=== PATIENT | female | born 1985 | race Caucasian/White ===

== ENCOUNTER 2017-04-19 17:22 | Emergency (ER) | payer MEDICAID ==
[~2017-04-19] VITALS: Ht 175.3 cm; Wt 65.8 kg
[~2017-04-19 17:22] MED LIST: ACET-3017 PO; ALPR-429 PO; AMIT-106 PO; ASCO-182 PO; ASPI81TA94 PO; AZIT-1 PO; AZIT-9 PO; CEF300 PO; CEFU500T50 PO; CHOL400C10 PO; CYAN100T25 PO; CYCL10TA29 PO; DICY20TA70 PO; DIPH-1 PO; DIPH-740 PO; DOCU240C67 PO; FERR325C2 PO; FERR325T24 PO; HYDR-389 PO; HYDR25CA83 PO; HYDR2TAB4 PO; IBUP-2704 PO; IBUP800T37 PO; MEDR150D IM; NARA2.5T2 PO; ONDA4TAB PO; OXYC-373 PO; OXYC-865 PO; PREN-127 PO; PROM-110 PO; PROM25SU8 PR; PROM50TA23 PO; PROP20TA56 PO; RANI-320 PO; RANI-324 PO; SCOT TD; SERT25TA90 PO; SUMA100T32 PO; SUMA6CAR SQ; [UNRECOGNIZED DRUG - CODE]; [UNRECOGNIZED DRUG - CODE] SUBQ
--- NOTE | 2017-04-19 17:25 | ER Report ---
History and Physical Time Seen By MD: 17:24 (CLARK BAZAN MD) HPI/ROS CC: MS exacerbation HPI: 32-year-old female with past medical history of multiple sclerosis, vitamin D deficiency, bronchitis, patient presents to the emergency department with a two- week history of increasing weakness with blurred vision and also feeling of dizziness with a swimming sensation. She has a mild headache but denies it being a migraine. She is requesting that an MRI be done. Usually she receives thousand milligrams of methylprednisone and Phenergan for nausea. She then has a four-day course of methylprednisone. She is a patient of Dr. Beach, neurologist in [place]. They have discussed long-term steroids but they declined at that time hoping that she would improve. She has slowly deteriorated over the last couple of months. Her pain scale is 4 out of 10. She denies any vomiting, chest pain chest pressure, shortness of breath, palpitations, head trauma. ROS: 12 point review of systems essentially negative other than what's mentioned in history of present illness. NURSES AND OLD MEDICAL RECORDS: Reviewed PMH: Reviewed SURGICAL HX: Reviewed FAMILY HX: Noncontributory SOCIAL HX: She lives at home she denies smoking alcohol or illicit drugs. VITAL SIGNS: Reviewed CONSTITUTIONAL: 32-year-old female in moderate distress. PHYSICAL EXAM: HEENT: Pupils equal round reactive to light and accommodate, EOMI, tympanic membranes pearly white umbo present with good light reflex. Lips dry mucous membranes moist gums nonbleeding uvula midline and rises equally with phonation, oropharynx noninjected, teeth intact. NECK: Neck supple, thyroid not appreciated, anterior and posterior cervical lymphadenopathy not appreciated. Trachea midline and rises equally with phonation. CARDIAC: S1-S2 regular rate rhythm no murmurs rubs or gallops. LUNGS: Lungs clear bilaterally posteriorly in all bolden. Good air movement. ABDOMEN: Abdomen soft, nondistended, bowel sounds active in all 4 quadrants, no bruits noted, no CVA tenderness. MUSCULOSKELETAL: Strength 5 out of 5 x 4 extremities, no deformities noted. NEUROLOGIC: Patient alert and oriented by 3 (CLARK BAZAN MD) Allergies: Coded Allergies: glatiramer (copolymer 1) (Verified Allergy, Severe, hives, throat swelling , sweating, flushing, 10/15/16) Home Meds Active Scripts Oxycodone Hcl/Acetaminophen (PERCOCET 5-325 MG TABLET) 1 Each Tablet, 1 TAB PO QID Y for PAIN, #30 TAB 0 Refills Prov:KAYLIE JAMES MD 03/25/17 Diphenoxylate Hcl/Atropine (LOMOTIL TABLET) 1 Each Tablet, 1-2 TAB PO BID Y for DIARRHEA, #60 TAB 3 Refills Take 1 or 2 tablets up to twice each day depending on severity of diarrhea Prov:KAYLIE JAMES MD 03/11/17 Ranitidine Hcl (RANITIDINE HCL) 300 Mg Tablet, 1 TAB PO QDAY Y for DYSPEPSIA, # 30 TAB 3 Refills Prov:KAYLIE JAMES MD 01/09/17 Dicyclomine Hcl (DICYCLOMINE HCL) 20 Mg Tablet, 1 TAB PO QID, #120 TAB 6 Refills Prov:KAYLIE JAEMS MD 01/09/17 Sumatriptan Succinate (IMITREX) 100 Mg Tablet, 100 MG PO ONCE for headache, #9 Prov:JOSH ACOSTA DO 01/25/16 Reported Medications Gabapentin (GABAPENTIN) 300 Mg Capsule, 600 MG PO TID, CAPSULE 04/19/17 Scopolamine (TRANSDERM-SCOP) 1.5 Mg Patch, 1.5 MG TD PRN Y for NAUSEA, PATCH 10/15/16 Propranolol Hcl (PROPRANOLOL HCL) 20 Mg Tablet, 40 MG PO BID, TAB 10/15/16 Hx Smoking: Yes (1 ppweek for 12 years) Smoking Status: Light Tobacco Smoker Exposure to Second Hand Smoke?: Yes Hx Substance Use Disorder: No Hx Alcohol Use: No (CLARK BAZAN MD) Constitutional Vital Sign - Last 24 Hours 04/19/17 17:27 Temp 98.3 Pulse 89 Resp 18 B/P (MAP) 134/97 Pulse Ox 95 O2 Delivery Room Air (JONI ZAPATA MD) Medical Decision Making Data Points Result Diagram: 04/19/17181604/19/171816 Laboratory Hematology Test 04/19/17 18:17 04/19/17 18:34 Red Blood Count 4.54 M/uL (4.17-5.56) Mean Corpuscular Volume 88.1 fL (80.0-96.0) Mean Corpuscular Hemoglobin 30.0 pg (26.0-33.0) Mean Corpuscular Hemoglobin Concent 34.0 g/dL (32.0-36.0) Red Cell Distribution Width 14.7 % (11.5-14.5) Mean Platelet Volume 8.8 fL (7.2-11.1) Neutrophils (%) (Auto) 68.5 % (39.4-72.5) Lymphocytes (%) (Auto) 20.7 % (17.6-49.6) Monocytes (%) (Auto) 6.5 % (4.1-12.4) Eosinophils (%) (Auto) 3.6 % (0.4-6.7) Basophils (%) (Auto) 0.7 % (0.3-1.4) Nucleated RBC Relative Count (auto) 0.0 /100WBC Neutrophils # (Auto) 5.5 K/uL (2.0-7.4) Lymphocytes # (Auto) 1.7 K/uL (1.3-3.6) Monocytes # (Auto) 0.5 K/uL (0.3-1.0) Eosinophils # (Auto) 0.3 K/uL (0.0-0.5) Basophils # (Auto) 0.1 K/uL (0.0-0.1) Nucleated RBC Absolute Count (auto) 0.00 K/uL Sodium Level 140 mmol/L (137-145) Potassium Level 3.7 mmol/L (3.5-5.0) Chloride Level 103 mmol/L (98-107) Carbon Dioxide Level 23 mmol/L (22-31) Blood Urea Nitrogen 9 mg/dl (7-18) Creatinine 0.60 mg/dl (0.52-1.04) Glomerular Filtration Rate Calc > 60.0 Random Glucose 86 mg/dl (75-110) Calcium Level 9.0 mg/dl (8.4-10.2) Total Bilirubin 1.3 mg/dl (0.2-1.3) Aspartate Amino Transf (AST/SGOT) 15 U/L (0-35) Alanine Aminotransferase (ALT/SGPT) 20 U/L (0-56) Alkaline Phosphatase 62 U/L (0-126) Total Protein 7.4 gm/dl (6.3-8.2) Albumin 4.4 g/dl (3.5-5.0) Urine Color Yellow Urine Clarity Slightly-cloudy Urine pH 5.0 pH (4.8-9.5) Urine Specific [place] 1.018 Urine Protein Negative mg/dL (NEGATIVE) Urine Glucose (UA) Negative mg/dL (NEGATIVE) Urine Ketones Negative mg/dL (NEGATIVE) Urine Blood Negative (NEGATIVE) Urine Nitrite Negative (NEGATIVE) Urine Bilirubin Negative (NEGATIVE) Urine Urobilinogen Negative mg/dL (0.2-1.9) Urine Leukocyte Esterase Negative (NEGATIVE) Urine RBC 1 /HPF (0-2/HPF) Urine WBC 1 /HPF (0-5/HPF) Urine Squamous Epithelial Cells Many /LPF (</=FEW) Urine Bacteria Negative /HPF (NONE-FEW) Urine Mucus Few /HPF (NONE-FEW) Urine HCG, Qualitative Negative (NEGATIVE) Chemistry Test 04/19/17 18:17 04/19/17 18:34 White Blood Count 8.1 k/uL (4.5-11.0) Red Blood Count 4.54 M/uL (4.17-5.56) Hemoglobin 13.6 g/dL (12.0-16.0) Hematocrit 40.0 % (34.0-47.0) Mean Corpuscular Volume 88.1 fL (80.0-96.0) Mean Corpuscular Hemoglobin 30.0 pg (26.0-33.0) Mean Corpuscular Hemoglobin Concent 34.0 g/dL (32.0-36.0) Red Cell Distribution Width 14.7 % (11.5-14.5) Platelet Count 227 K/uL (150-450) Mean Platelet Volume 8.8 fL (7.2-11.1) Neutrophils (%) (Auto) 68.5 % (39.4-72.5) Lymphocytes (%) (Auto) 20.7 % (17.6-49.6) Monocytes (%) (Auto) 6.5 % (4.1-12.4) Eosinophils (%) (Auto) 3.6 % (0.4-6.7) Basophils (%) (Auto) 0.7 % (0.3-1.4) Nucleated RBC Relative Count (auto) 0.0 /100WBC Neutrophils # (Auto) 5.5 K/uL (2.0-7.4) Lymphocytes # (Auto) 1.7 K/uL (1.3-3.6) Monocytes # (Auto) 0.5 K/uL (0.3-1.0) Eosinophils # (Auto) 0.3 K/uL (0.0-0.5) Basophils # (Auto) 0.1 K/uL (0.0-0.1) Nucleated RBC Absolute Count (auto) 0.00 K/uL Glomerular Filtration Rate Calc > 60.0 Calcium Level 9.0 mg/dl (8.4-10.2) Total Bilirubin 1.3 mg/dl (0.2-1.3) Aspartate Amino Transf (AST/SGOT) 15 U/L (0-35) Alanine Aminotransferase (ALT/SGPT) 20 U/L (0-56) Alkaline Phosphatase 62 U/L (0-126) Total Protein 7.4 gm/dl (6.3-8.2) Albumin 4.4 g/dl (3.5-5.0) Urine Color Yellow Urine Clarity Slightly-cloudy Urine pH 5.0 pH (4.8-9.5) Urine Specific [place] 1.018 Urine Protein Negative mg/dL (NEGATIVE) Urine Glucose (UA) Negative mg/dL (NEGATIVE) Urine Ketones Negative mg/dL (NEGATIVE) Urine Blood Negative (NEGATIVE) Urine Nitrite Negative (NEGATIVE) Urine Bilirubin Negative (NEGATIVE) Urine Urobilinogen Negative mg/dL (0.2-1.9) Urine Leukocyte Esterase Negative (NEGATIVE) Urine RBC 1 /HPF (0-2/HPF) Urine WBC 1 /HPF (0-5/HPF) Urine Squamous Epithelial Cells Many /LPF (</=FEW) Urine Bacteria Negative /HPF (NONE-FEW) Urine Mucus Few /HPF (NONE-FEW) Urine HCG, Qualitative Negative (NEGATIVE) Urinalysis Test 04/19/17 18:34 Urine Color Yellow Urine Clarity Slightly-cloudy Urine pH 5.0 pH (4.8-9.5) Urine Specific [place] 1.018 Urine Protein Negative mg/dL (NEGATIVE) Urine Glucose (UA) Negative mg/dL (NEGATIVE) Urine Ketones Negative mg/dL (NEGATIVE) Urine Blood Negative (NEGATIVE) Urine Nitrite Negative (NEGATIVE) Urine Bilirubin Negative (NEGATIVE) Urine Urobilinogen Negative mg/dL (0.2-1.9) Urine Leukocyte Esterase Negative (NEGATIVE) Urine RBC 1 /HPF (0-2/HPF) Urine WBC 1 /HPF (0-5/HPF) Urine Squamous Epithelial Cells Many /LPF (</=FEW) Urine Bacteria Negative /HPF (NONE-FEW) Urine Mucus Few /HPF (NONE-FEW) Urine HCG, Qualitative Negative (NEGATIVE) (JONI ZAPATA MD) EKG/Imaging Imaging MRI report reviewed and results were the discussed with the patient. (JONI ZAPATA MD) ED Course/Re-evaluation ED Course Labs are pending. I have not heard back from the neurologist in [place]. Methylprednisolone succinate 1 g has been ordered. Also Phenergan 25 mg IV piggyback for nausea. Turned Over Dr. Henderson report given 5-year-old female with MS exacerbation. (CLARK BAZAN MD) ED Course 04/19/2017 7:02:33 pm case discussed with Dr. Beach, neurologist in [place] who is in favor of obtaining MRI with and without contrast of the brain tonight this was discussed with the patient who is in agreement she is currently receiving OCREVUS infusions b-cell suppressant therapy and is due in May for this. Also patient is requesting medicine for her headache she says she misspoke earlier Toradol is a drug that can be helpful Buttram at all is the drug that does not work for her she is requesting a shot of Toradol tonight. Toradol 50 mg IV push 1 ordered. MRI brain with and without was ordered after discussion of risks and benefits with the patient. Steroid infusion has already started and will complete. Plan at this time as per discussion with Dr. Bazan his for discharge and outpatient infusion therapy for the next 4 days. Patient is in agreement with this plan. 04/19/2017 9:19:11 pm patient relates that she has headaches associated with slight medical infusions as requesting medicines for pain control as she is out of oxycodone I wrote her for Toradol 10 mg tabs as well as Percocet 05/325 for oral use. Decision to Disposition Date: Apr 19, 2017 Decision to Disposition Time: 21:05 (JONI ZAPATA MD) Depart Departure Latest Vital Signs Vital Signs Date Time Temp Pulse Resp B/P (MAP) Pulse Ox O2 Delivery O2 Flow Rate FiO2 04/19/17 17:27 98.3 89 18 134/97 95 Room Air (JONI ZAPATA MD) Impression: Primary Impression: Multiple sclerosis Condition: Improved Disposition: HOME OR SELF-CARE Referrals: AMI BROWNLEE DO (PCP) Patient Instructions: Multiple Sclerosis (GEN) Additional Instructions: Return to infusion center tomorrow as scheduled at 10am for solumedrol infusion. MD Consult Note: Dr. Beach (JONI ZAPATA MD) CLARK BAZAN MD Apr 19, 2017 17:25 JONI ZAPATA MD Apr 19, 2017 19:04
[2017-04-19] MEDS ORDERED: methylPREDNIS SUC* 1000 MG/8ML 1,000 MG in NS(*) 0.9% 250 ML BAG 250 ML IV ONE (17:45)
[2017-04-19] MEDS ORDERED: PROMETHAZINE 25 MG/ML 1 ML AMP IVP ONE (17:45)
[2017-04-19 18:24] LABS: PLATELET COUNT, AUTOMATED 227 K/uL (150-450)
[2017-04-19] MEDS ORDERED: GABA-549 PO (18:35)
[2017-04-19] MEDS ORDERED: KETOROLAC 30 MG/ML VIAL IVP ONE (19:05)
[2017-04-19] MEDS ORDERED: KETOROLAC 15 MG/ML VIAL ONE (19:12)
[2017-04-19] MEDS ORDERED: GADOBENATE 529MG/1ML 15ML VIAL IVP ONE (20:00)
--- NOTE | 2017-04-19 21:01 | RADIOLOGY IMAGING REPORT ---
FACILITY: [facility] PATIENT NAME: Kaley Galindo : 1985 MR: [id number] V: [id number] EXAM DATE: ORDERING PHYSICIAN: JONI ZAPATA TECHNOLOGIST: Location: [facility] Patient: Kaley Galindo : 1985 Visit/Account:[id number] Date of Sevice: 04/19/2017 EXAMINATION: MRI Brain without IV contrast MRI Brain with IV contrast HISTORY: Multiple sclerosis. COMPARISON: 08/09/2016. TECHNIQUE: Multi-planar, multi-sequence brain MRI was performed before and after IV gadolinium. CONTRAST: 14 mL of IV MultiHance FINDINGS: Brain volume: Normal. Sagittal midline structures: Negative. Ventricles: Negative. Acute ischemic changes: None. Hemorrhage: None. Masses / edema: None. Enhancement: Normal. Garcia-white: Negative. White matter: Moderate patchy periventricular and subcortical T2/FLAIR hyperintensity. There are 4 n ew plaques in the left temporal lobe (series 4, image 18), left occipitotemporal subcortical white ma tter (series 4, image 25), right parietal white matter (series 4, image 34), and right posterior fron keri white matter (series 4, image 38). No restricted diffusion or enhancement. Vessels: Negative. Extra-axial: None. Calvarium / scalp: Negative. Skull base: Negative. Visualized sinuses / orbits: Rightward nasal septal deviation. Otherwise negative. Visualized upper neck: Negative. IMPRESSION: There are 4 new demyelinating plaques in the left temporal lobe, left occipitotemporal re gion, right parietal lobe, and right frontal lobe compared with 08/09/2016. No enhancement or restrict ed diffusion in these locations. Otherwise no significant interval change. Results were called to Rommel Bell at 04/19/2017 8:58 PM. Report Dictated By: Rian Matamoros MD at 04/19/2017 8:43 PM Report E-Signed By: Rian Matamoros MD at 04/19/2017 8:58 PM WSN:[id number]
[2017-04-19 21:21] VITALS: BP 110/72
[2017-04-24] MEDS ORDERED: OXYC-865 PO (17:00)
== END 2017-04-19 21:30 | disposition home or self-care (01) ==
LOC: ER 17:31
DX: G35 Multiple sclerosis (principal)
CPT/HCPCS: 70553; 81001; 81025; 85025; 99284; A9577; J1885; J2550; J2930; J7050; 82040; 82247; 82310; 82374; 82435; 82565; 82947; 84075; 84132; 84155; 84295; 84450; 84460; 84520

== ENCOUNTER → 2017-04-20 | Outpatient (CLI) | payer MEDICAID ==
[~2017-04-20] MED LIST changes: +GABA-549 PO
== END ==
LOC: LAB 09:45
PROVIDERS: ATTEND Family Medicine
DX: B35.1 Tinea unguium (principal)
CPT/HCPCS: 36415; 82040; 82247; 82310; 82374; 82435; 82565; 82947; 84075; 84132; 84155; 84295; 84450; 84460; 84520

== ENCOUNTER 2017-05-31 08:00 | Outpatient (RCR) | payer MEDICAID ==
[2017-04-20 10:20] VITALS: BP 99/64
[2017-04-20] MEDS: PROMETHAZINE IVP PRN (10:36)
[2017-04-20] MEDS: NS 0.9% IVP PRN (10:36)
[2017-04-20] MEDS: methylPREDNIS SUC* 1000 MG/8ML 1,000 MG in NS(*) 0.9% 250 ML BAG 250 ML IV PRN (11:04)
[2017-04-21 09:38] VITALS: BP 118/70
[2017-04-21] MEDS: PROMETHAZINE IVP PRN (09:58)
[2017-04-21] MEDS: NS 0.9% IVP PRN (09:58)
[2017-04-21] MEDS: methylPREDNIS SUC* 1000 MG/8ML 1,000 MG in NS(*) 0.9% 250 ML BAG 250 ML IV PRN (10:24)
[2017-04-22] MEDS: NS 0.9% IVP PRN (10:06)
[2017-04-22] MEDS: PROMETHAZINE IVP PRN (10:06)
[2017-04-22 10:08] VITALS: BP 116/78
[2017-04-22] MEDS: methylPREDNIS SUC* 1000 MG/8ML 1,000 MG in NS(*) 0.9% 250 ML BAG 250 ML IV PRN (10:28)
[2017-04-23] MEDS: PROMETHAZINE IVP PRN (10:33)
[2017-04-23] MEDS: methylPREDNIS SUC* 1000 MG/8ML 1,000 MG in NS(*) 0.9% 250 ML BAG 250 ML IV PRN (10:33)
[2017-04-23] MEDS: NS 0.9% IVP PRN (10:33)
[2017-04-23 16:42] VITALS: BP 119/78
[~2017-05-31 08:00] MED LIST changes: +DEXTROSE 5%(*) 100 ML BAG 100 ML IVPB PRN; +LIDOCAINE/SOD BICARB 8.4% SYR ID PRN; +NS(*) 0.9% 100 ML BAG 100 ML IVPB PRN
[2017-05-31 08:20] VITALS: BP 93/73
[2017-05-31] MEDS ORDERED: ACETAMINOPHEN 325 MG TAB PO PRN (08:40)
[2017-05-31] MEDS ORDERED: diphenhydrAMINE 25 MG CAP PO PRN (08:40)
[2017-05-31 08:43] LABS: PLATELET COUNT, AUTOMATED 183 K/uL (150-450)
[2017-05-31] MEDS: methylPREDNIS SUCC 125 MG/2ML IVP PRN ×2 (08:46→08:54)
[2017-05-31] MEDS ORDERED: OCRELIZUMAB 300 MG/10 ML SDV 600 MG in NS(*) 0.9% 500 ML BAG 500 ML IVPB ONE (09:00)
== END 2017-06-12 10:30 | disposition home or self-care (01) ==
LOC: SPU 08:00
PROVIDERS: ATTEND Emergency Medicine
DX: G35 Multiple sclerosis (principal)
CPT/HCPCS: 36415; 85025; 96365; 96366; 96375; J2350; J2550; J2930; J7040; J7050; Q0163; 82040; 82247; 82310; 82374; 82435; 82565; 82947; 84075; 84132; 84155; 84295; 84450; 84460; 84520

== ENCOUNTER 2017-11-22 07:54 | Outpatient (RCR) | payer MEDICAID ==
[~2017-11-22 07:54] MED LIST changes: -RANI-324 PO; +RANI-366 PO
[2017-11-22] MEDS ORDERED: OCRELIZUMAB 300 MG/10 ML SDV 300 MG in NS(*) 0.9% 250 ML BAG 250 ML IVPB ONE (08:25)
[2017-11-22] MEDS ORDERED: diphenhydrAMINE 25 MG CAP PO PRN (08:30)
[2017-11-22] MEDS ORDERED: methylPREDNIS SUCC 125 MG/2ML IVP PRN (08:30)
[2017-11-22] MEDS ORDERED: ACETAMINOPHEN 325 MG TAB PO PRN (08:30)
[2017-11-22 08:34] VITALS: BP 113/79
[2017-11-22 08:34] LABS: PLATELET COUNT, AUTOMATED 229 K/uL (150-450)
[2017-11-22] MEDS ORDERED: NS 0.9% IVPB ONE (09:00)
[2017-11-22] MEDS ORDERED: OCRELIZUMAB IVPB ONE (09:00)
[2017-11-22] MEDS ORDERED: OCRELIZUMAB 300 MG/10 ML SDV 600 MG in NS(*) 0.9% 500 ML BAG 500 ML IVPB ONE (09:10)
[2017-11-22 14:05] VITALS: BP 101/70
[2017-11-22] MEDS ORDERED: DICY20TA70 PO (19:06)
[2017-12-03] MEDS ORDERED: KET10 PO (19:42)
[2017-12-03] MEDS ORDERED: OXYC-865 PO (19:42)
[2017-12-03] MEDS ORDERED: HYDR-4228 PO (19:42)
[2017-12-20] MEDS ORDERED: OXYC-865 PO (12:02)
[2017-12-24] MEDS ORDERED: DIPH-1 PO (11:09)
== END 2017-12-20 08:29 | disposition home or self-care (01) ==
LOC: SPU 07:54
PROVIDERS: ATTEND Emergency Medicine
DX: G35 Multiple sclerosis (principal)
CPT/HCPCS: 85025; 96375; 96413; 96415; J2350; J2930; J7040; J7050; Q0163

== ENCOUNTER 2017-12-03 17:18 | Emergency (ER) | payer MEDICAID ==
[~2017-12-03 17:18] MED LIST changes: -DEXTROSE 5%(*) 100 ML BAG 100 ML IVPB PRN; -LIDOCAINE/SOD BICARB 8.4% SYR ID PRN; -NS(*) 0.9% 100 ML BAG 100 ML IVPB PRN
--- NOTE | 2017-12-03 17:39 | ER Report ---
History and Physical Time Seen By MD: 17:38 Hx. of Stated Complaint: "MS EXACERBATION". DIFFICULTY THINKING, HEADACHE, INCREASED PAIN. HPI/ROS CHIEF COMPLAINT: MS exacerbation, headache HISTORY OF PRESENT ILLNESS: 32-year-old female patient presents to emergency room with complaint of an MS exacerbation. Patient states that she has been having problems for approximately 10 days. She states that she is having numbness, tingling in her hands, weakness throughout. She states she's also been having a headache. She states that she has been having a difficult time finding words and speaking. She states that she also has difficult time concentrating. Patient states that she did contact her neurologist today, and was able to get hold of her. She did come in for steroid treatment. Patient denies any fevers, chills, nausea, vomiting or diarrhea. REVIEW OF SYSTEMS: Respiratory: No cough, no dyspnea. Cardiovascular: No chest pain, no palpitations. Gastrointestinal: No vomiting, no abdominal pain. Musculoskeletal: As noted above Allergies: Coded Allergies: glatiramer (copolymer 1) (Verified Allergy, Severe, hives, throat swelling , sweating, flushing, 12/03/17) Home Meds Active Scripts Ketorolac Tromethamine (KETOROLAC TROMETHAMINE) 10 Mg Tab, 10 MG PO Q6H, #20 TAB Prov:MARCIO ISAAC 12/03/17 Hydroxyzine Hcl (HYDROXYZINE HCL) 50 Mg Tablet, 50 MG PO QHS Y for INSOMNIA, # 15 TAB Prov:MARCIO ISAAC 12/03/17 Oxycodone Hcl/Acetaminophen (PERCOCET 5-325 MG TABLET) 1 Each Tablet, 1 EACH PO Q4-6H Y for PAIN, #12 TAB Prov:MARCIO ISAAC 12/03/17 Dicyclomine Hcl (DICYCLOMINE HCL) 20 Mg Tablet, 1 TAB PO QID, #120 TAB 6 Refills Prov:KAYLIE JAMES MD 11/22/17 Diphenoxylate Hcl/Atropine (LOMOTIL TABLET) 1 Each Tablet, 1-2 TAB PO BID Y for DIARRHEA, #60 TAB 3 Refills Take 1 or 2 tablets up to twice each day depending on severity of diarrhea Prov:KAYLIE JAMES MD 08/12/17 Ranitidine Hcl (RANITIDINE HCL) 300 Mg Tablet, 1 TAB PO QDAY Y for DYSPEPSIA, # 60 TAB 6 Refills Prov:KAYLIE JAMES MD 05/06/17 Sumatriptan Succinate (IMITREX) 100 Mg Tablet, 100 MG PO ONCE for headache, #9 Prov:KARLAJOSH DO 01/25/16 Reported Medications Gabapentin (GABAPENTIN) 300 Mg Capsule, 600 MG PO TID, CAPSULE 04/19/17 Scopolamine (TRANSDERM-SCOP) 1.5 Mg Patch, 1.5 MG TD PRN Y for NAUSEA, PATCH 10/15/16 Propranolol Hcl (PROPRANOLOL HCL) 20 Mg Tablet, 40 MG PO BID, TAB 10/15/16 Discontinued Scripts Oxycodone Hcl/Acetaminophen (PERCOCET 5-325 MG TABLET) 1 Each Tablet, 1 TAB PO QID Y for PAIN, #30 TAB 0 Refills Prov:KAYLIE JAMES MD 11/19/17 Past Medical/Surgical History Patient has a past medical history of MS, trigeminal neuralgia, migraines, heart murmur, frequent UTI, upper back pain, tinnitus, anxiety. Patient has a surgical history of appendectomy, tubal ligation, left foot surgery, tooth extraction. Patient has a family medical history of cancer. Reviewed Nurses Notes: Yes Hx Smoking: Yes (1 ppweek for 12 years) Smoking Status: Light Tobacco Smoker Exposure to Second Hand Smoke?: Yes Hx Substance Use Disorder: No Hx Alcohol Use: No Constitutional Vital Sign - Last 24 Hours 12/03/17 12/03/17 12/03/17 12/03/17 17:22 17:30 17:59 18:00 Temp 98.3 Pulse 67 73 73 Resp 18 B/P (MAP) 123/85 103/65 (78) 106/79 (88) Pulse Ox 98 81 96 O2 Delivery Room Air 12/03/17 12/03/17 12/03/17 12/03/17 18:05 18:20 18:30 18:35 Pulse 63 70 75 B/P (MAP) 89/55 (66) Pulse Ox 97 95 100 12/03/17 12/03/17 12/03/17 18:50 19:00 19:30 Pulse ??? B/P (MAP) 121/76 (91) 107/74 (85) Pulse Ox 84 Intake and Output 12/03/17 12/03/17 12/04/17 15:00 23:00 07:00 Intake Total 258 ml Balance 258 ml Physical Exam General Appearance: The patient is alert, has no immediate need for airway protection and no current signs of toxicity. ENT: Tympanic membranes are pearly-edwards, auditory canals are patent. Respiratory: Chest is non tender, lungs are clear to auscultation. Cardiac: regular rate and rhythm Gastrointestinal: Abdomen is soft and non tender, no masses, bowel sounds normal. Musculoskeletal: Neck: Neck is supple and non tender. Extremities have full range of motion and are non tender. Skin: No rashes or lesions. Neuro: Patient is alert and oriented 4, cranial nerves II through XII grossly intact. DIFFERENTIAL DIAGNOSIS: After history and physical exam differential diagnosis was considered for headache including but not limited to subarachnoid hemorrhage , migraine headache, tension headache and infectious causes such as meningitis, pharyngitis and sinusitis. Included in the differential is MS exacerbation. Medical Decision Making Data Points Result Diagram: 12/03/17 18012/03/17 180 Laboratory Hematology Test 12/03/17 17:56 12/03/17 18:07 Urine Color Yellow Urine Clarity Clear Urine pH 6.0 pH (4.8-9.5) Urine Specific [place] 1.010 Urine Protein Negative mg/dL (NEGATIVE) Urine Glucose (UA) Negative mg/dL (NEGATIVE) Urine Ketones Negative mg/dL (NEGATIVE) Urine Blood Negative (NEGATIVE) Urine Nitrite Negative (NEGATIVE) Urine Bilirubin Negative (NEGATIVE) Urine Urobilinogen Negative mg/dL (0.2-1.9) Urine Leukocyte Esterase Negative (NEGATIVE) Urine RBC 1 /HPF (0-2/HPF) Urine WBC 1 /HPF (0-5/HPF) Urine Squamous Epithelial Cells Many /LPF (</=FEW) Urine Bacteria Negative /HPF (NONE-FEW) Urine Mucus None /HPF (NONE-FEW) Red Blood Count 4.85 M/uL (4.17-5.56) Mean Corpuscular Volume 90.3 fL (80.0-96.0) Mean Corpuscular Hemoglobin 31.7 pg (26.0-33.0) Mean Corpuscular Hemoglobin Concent 35.1 g/dL (32.0-36.0) Red Cell Distribution Width 14.5 % (11.5-14.5) Mean Platelet Volume 8.2 fL (7.2-11.1) Neutrophils (%) (Auto) 69.4 % (39.4-72.5) Lymphocytes (%) (Auto) 21.2 % (17.6-49.6) Monocytes (%) (Auto) 6.1 % (4.1-12.4) Eosinophils (%) (Auto) 2.9 % (0.4-6.7) Basophils (%) (Auto) 0.4 % (0.3-1.4) Nucleated RBC Relative Count (auto) 0.0 /100WBC Neutrophils # (Auto) 6.8 K/uL (2.0-7.4) Lymphocytes # (Auto) 2.1 K/uL (1.3-3.6) Monocytes # (Auto) 0.6 K/uL (0.3-1.0) Eosinophils # (Auto) 0.3 K/uL (0.0-0.5) Basophils # (Auto) 0.0 K/uL (0.0-0.1) Nucleated RBC Absolute Count (auto) 0.00 K/uL Sodium Level 140 mmol/L (137-145) Potassium Level 3.7 mmol/L (3.5-5.0) Chloride Level 102 mmol/L (98-107) Carbon Dioxide Level 25 mmol/L (22-31) Blood Urea Nitrogen 12 mg/dl (7-18) Creatinine 0.70 mg/dl (0.52-1.04) Glomerular Filtration Rate Calc > 60.0 Random Glucose 91 mg/dl (75-110) Calcium Level 9.3 mg/dl (8.4-10.2) Total Bilirubin 0.7 mg/dl (0.2-1.3) Aspartate Amino Transf (AST/SGOT) 16 U/L (0-35) Alanine Aminotransferase (ALT/SGPT) 20 U/L (0-56) Alkaline Phosphatase 56 U/L (0-126) Total Protein 7.5 g/dl (6.3-8.2) Albumin 4.8 g/dl (3.5-5.0) Chemistry Test 12/03/17 17:56 12/03/17 18:07 Urine Color Yellow Urine Clarity Clear Urine pH 6.0 pH (4.8-9.5) Urine Specific [place] 1.010 Urine Protein Negative mg/dL (NEGATIVE) Urine Glucose (UA) Negative mg/dL (NEGATIVE) Urine Ketones Negative mg/dL (NEGATIVE) Urine Blood Negative (NEGATIVE) Urine Nitrite Negative (NEGATIVE) Urine Bilirubin Negative (NEGATIVE) Urine Urobilinogen Negative mg/dL (0.2-1.9) Urine Leukocyte Esterase Negative (NEGATIVE) Urine RBC 1 /HPF (0-2/HPF) Urine WBC 1 /HPF (0-5/HPF) Urine Squamous Epithelial Cells Many /LPF (</=FEW) Urine Bacteria Negative /HPF (NONE-FEW) Urine Mucus None /HPF (NONE-FEW) White Blood Count 9.9 k/uL (4.5-11.0) Red Blood Count 4.85 M/uL (4.17-5.56) Hemoglobin 15.4 g/dL (12.0-16.0) Hematocrit 43.8 % (34.0-47.0) Mean Corpuscular Volume 90.3 fL (80.0-96.0) Mean Corpuscular Hemoglobin 31.7 pg (26.0-33.0) Mean Corpuscular Hemoglobin Concent 35.1 g/dL (32.0-36.0) Red Cell Distribution Width 14.5 % (11.5-14.5) Platelet Count 273 K/uL (150-450) Mean Platelet Volume 8.2 fL (7.2-11.1) Neutrophils (%) (Auto) 69.4 % (39.4-72.5) Lymphocytes (%) (Auto) 21.2 % (17.6-49.6) Monocytes (%) (Auto) 6.1 % (4.1-12.4) Eosinophils (%) (Auto) 2.9 % (0.4-6.7) Basophils (%) (Auto) 0.4 % (0.3-1.4) Nucleated RBC Relative Count (auto) 0.0 /100WBC Neutrophils # (Auto) 6.8 K/uL (2.0-7.4) Lymphocytes # (Auto) 2.1 K/uL (1.3-3.6) Monocytes # (Auto) 0.6 K/uL (0.3-1.0) Eosinophils # (Auto) 0.3 K/uL (0.0-0.5) Basophils # (Auto) 0.0 K/uL (0.0-0.1) Nucleated RBC Absolute Count (auto) 0.00 K/uL Glomerular Filtration Rate Calc > 60.0 Calcium Level 9.3 mg/dl (8.4-10.2) Total Bilirubin 0.7 mg/dl (0.2-1.3) Aspartate Amino Transf (AST/SGOT) 16 U/L (0-35) Alanine Aminotransferase (ALT/SGPT) 20 U/L (0-56) Alkaline Phosphatase 56 U/L (0-126) Total Protein 7.5 g/dl (6.3-8.2) Albumin 4.8 g/dl (3.5-5.0) Urinalysis Test 12/03/17 17:56 Urine Color Yellow Urine Clarity Clear Urine pH 6.0 pH (4.8-9.5) Urine Specific [place] 1.010 Urine Protein Negative mg/dL (NEGATIVE) Urine Glucose (UA) Negative mg/dL (NEGATIVE) Urine Ketones Negative mg/dL (NEGATIVE) Urine Blood Negative (NEGATIVE) Urine Nitrite Negative (NEGATIVE) Urine Bilirubin Negative (NEGATIVE) Urine Urobilinogen Negative mg/dL (0.2-1.9) Urine Leukocyte Esterase Negative (NEGATIVE) Urine RBC 1 /HPF (0-2/HPF) Urine WBC 1 /HPF (0-5/HPF) Urine Squamous Epithelial Cells Many /LPF (</=FEW) Urine Bacteria Negative /HPF (NONE-FEW) Urine Mucus None /HPF (NONE-FEW) EKG/Imaging EKG Interpretation 12 lead EKG: Rhythm: normal sinus rhythm with sinus arrhythmia, ventricular rate of 64 bpm [place]: normal QRS: normal ST segments: normal Imaging 2 VIEWS CHEST INDICATION: Chest tightness. COMPARISON: 01/13/2015. 02/02/2016. FINDINGS: Cardiomediastinal silhouette and pulmonary vessels within normal limits. There is no focal infiltrate or lobar consolidation. There is no pneumothorax or pleural effusion. No discrete nodules are seen on this exam. Upper abdomen is unremarkable. No acute bony abnormality. IMPRESSION: 1. No acute cardiopulmonary process. Report Dictated By: Sonu Gleason at 12/03/2017 7:17 PM Report E-Signed By: Soun Gleason at 12/03/2017 7:19 PM ED Course/Re-evaluation ED Course Patient is admitted and examined, history and physical were obtained. Different diagnoses were considered. On examination lungs clear, heart is regular, patient was alert and oriented 4, cranial nerves II through XII grossly intact. An IV was started, CBC, CMP, urinalysis were obtained. Lab results were unremarkable. I did call and discuss the case with neurology had [facility] [place]. Endocrine through the case, although my plans to treat with 1 g of methylprednisolone and then have her get 4 more days. I did ask if he felt that she needed any imaging. He states that taking sure that this was not a pseudo-exacerbation and then treating appropriately would be appropriate and he would not feel that was necessary to do any imaging. I discussed the patient who verbalized agreement. As we are giving her her infusion of the methylprednisolone patient states she was feeling some chest tightness. We did get an EKG and a chest x-ray which were negative. We will go ahead and discharge patient home this time. We will have her continue Toradol, which he taken for headache, as well as some Percocet to help with pain. She is to follow -up with her primary care provider in the next week. I will like him follow-up neurology in the next 1-2 weeks. Patient verbalized understanding and agreement with plan. Decision to Disposition Date: Dec 03, 2017 Decision to Disposition Time: 19:45 Depart Departure Latest Vital Signs Vital Signs Date Time Temp Pulse Resp B/P (MAP) Pulse Ox O2 Delivery O2 Flow Rate FiO2 12/03/17 19:30 107/74 (85) 12/03/17 18:50 ??? 84 12/03/17 17:22 98.3 18 Room Air Impression: Primary Impression: Exacerbation of multiple sclerosis Additional Impression: Migraine headache Condition: Improved Disposition: HOME OR SELF-CARE Referrals: AMI BROWNLEE DO (PCP) New Scripts Ketorolac Tromethamine (KETOROLAC TROMETHAMINE) 10 Mg Tab 10 MG PO Q6H, #20 TAB Prov: MARCIO ISAAC 12/03/17 Hydroxyzine Hcl (HYDROXYZINE HCL) 50 Mg Tablet 50 MG PO QHS Y for INSOMNIA, #15 TAB Prov: MARCIO ISAAC 12/03/17 Oxycodone Hcl/Acetaminophen (PERCOCET 5-325 MG TABLET) 1 Each Tablet 1 EACH PO Q4-6H Y for PAIN, #12 TAB Prov: MARCIO ISAAC 12/03/17 Patient Instructions: Multiple Sclerosis (DC) Additional Instructions: Follow up with special procedure unit to get infusion for the next 4 days. Increase fluid intake. Get plenty of rest. Follow up with your primary care provider in the next week. Return to the ER if condition worsens. Take medication as prescribed. Problem Qualifiers Additional Impression: Migraine headache Migraine type: unspecified Status migrainosus presence: without status migrainosus Intractability: not intractable Qualified Codes: G43.909 - Migraine, unspecified, not intractable, without status migrainosus MARCIO ISAAC TRAVELING REPAIR ACCOUNTANT Dec 03, 2017 17:38
[2017-12-03] MEDS ORDERED: methylPREDNIS SUC* 1000 MG/8ML 1,000 MG in NS(*) 0.9% 250 ML BAG 250 ML IV ONE (17:55)
[2017-12-03 18:17] LABS: PLATELET COUNT, AUTOMATED 273 K/uL (150-450)
[2017-12-03] MEDS ORDERED: KETOROLAC 15 MG/ML VIAL IVP ONE (18:35)
[2017-12-03] MEDS ORDERED: ONDANSETRON 4 MG/2 ML VIAL IVP ONE (18:35)
--- NOTE | 2017-12-03 19:23 | RADIOLOGY IMAGING REPORT ---
FACILITY: [facility] - [place] PATIENT NAME: Kaley Galindo : 1985 MR: [id number] V: [id number] EXAM DATE: ORDERING PHYSICIAN: MARCIO ISAAC TECHNOLOGIST: Location: [facility] Patient: Kaley Galindo : 1985 Visit/Account:[id number] Date of Sevice: 12/03/2017 2 VIEWS CHEST INDICATION: Chest tightness. COMPARISON: 01/13/2015. 02/02/2016. FINDINGS: Cardiomediastinal silhouette and pulmonary vessels within normal limits. There is no focal infiltrate or lobar consolidation. There is no pneumothorax or pleural effusion. No discrete nodules are seen on this exam. Upper abdomen is unremarkable. No acute bony abnormality. IMPRESSION: 1. No acute cardiopulmonary process. Report Dictated By: Sonu Gleason at 12/03/2017 7:17 PM Report E-Signed By: Sonu Gleason at 12/03/2017 7:19 PM [id number]
[2017-12-03 19:30] VITALS: BP 107/74
[2017-12-03] MEDS ORDERED: OXYC-865 PO (19:42)
[2017-12-03] MEDS ORDERED: KET10 PO (19:42)
[2017-12-03] MEDS ORDERED: HYDR-4228 PO (19:42)
[2017-12-03] MEDS ORDERED: hydrOXYzine 25 MG TAB TH 2 TAB/BOTTLE PO ONE (20:10)
--- NOTE | 2017-12-04 06:32 | EKG ---
[place] [facility] [place] NAME: COLE LONG : [id number] MR: [id number] V: [id number] EXAM DATE: ORDERING PHYSICIAN: MARCIO ISAAC TECHNOLOGIST: Test Reason : CHEST TIGHTNESS Blood Pressure : / mmHG Vent. Rate : 064 BPM Atrial Rate : 064 BPM P-R Int : 146 ms QRS Dur : 072 ms QT Int : 432 ms P-R-T Axes : 059 076 061 degrees QTc Int : 445 ms Normal sinus rhythm with sinus arrhythmia Normal ECG When compared with ECG of 02-FEB-2016 09:07, Vent. rate has increased BY 22 BPM T wave inversion less evident in Anterior leads Confirmed by KAYLIE SALAMANCA ([id number]) on 12/04/2017 11:26:04 AM Referred By: Confirmed By:KAYLIE SALAMANCA
== END 2017-12-03 20:10 | disposition home or self-care (01) ==
LOC: ER 17:30
DX: G43.909 Migraine, unspecified, not intractable, without status migrainosus (principal); G35 Multiple sclerosis; R07.89 Other chest pain
CPT/HCPCS: 81001; 85025; 93005; 96365; 96375; 99284; J1885; J2405; J2930; J7050; 71046; 82040; 82247; 82310; 82374; 82435; 82565; 82947; 84075; 84132; 84155; 84295; 84450; 84460; 84520

== ENCOUNTER 2017-12-06 10:30 | Outpatient (RCR) | payer MEDICAID ==
[2017-12-04 10:10] VITALS: BP 109/73
[2017-12-04] MEDS: NS(*) 0.9% 100 ML BAG 100 ML IVPB PRN (10:55)
[2017-12-04] MEDS: methylPREDNIS SUC* 1000 MG/8ML 1,000 MG in NS(*) 0.9% 250 ML BAG 250 ML IV PRN (10:55)
[2017-12-04 12:03] VITALS: BP 100/55
[2017-12-05 11:55] VITALS: BP 100/57
[2017-12-05] MEDS: methylPREDNIS SUC* 1000 MG/8ML 1,000 MG in NS(*) 0.9% 250 ML BAG 250 ML IV PRN (12:26)
[2017-12-05 13:32] VITALS: BP 105/65
[~2017-12-06 10:30] MED LIST changes: +DEXTROSE 5%(*) 100 ML BAG 100 ML IVPB PRN; +HYDR-4228 PO; +KET10 PO; +LIDOCAINE/SOD BICARB 8.4% SYR ID PRN
[2017-12-06 11:02] VITALS: BP 95/60
[2017-12-06] MEDS: methylPREDNIS SUC* 1000 MG/8ML 1,000 MG in NS(*) 0.9% 250 ML BAG 250 ML IV PRN (11:27)
[2017-12-06] MEDS: NS(*) 0.9% 100 ML BAG 100 ML IVPB PRN (11:28)
[2017-12-06 12:54] VITALS: BP 95/57
[2017-12-07 08:59] VITALS: BP 108/75
[2017-12-07] MEDS: NS(*) 0.9% 100 ML BAG 100 ML IVPB PRN (09:01)
[2017-12-07] MEDS: methylPREDNIS SUC* 1000 MG/8ML 1,000 MG in NS(*) 0.9% 250 ML BAG 250 ML IV PRN (09:01)
[2017-12-07 10:13] VITALS: BP 99/58
[2017-12-20] MEDS ORDERED: OXYC-865 PO (12:02)
[2017-12-24] MEDS ORDERED: DIPH-1 PO (11:09)
== END 2017-12-20 08:33 | disposition home or self-care (01) ==
LOC: SPU 10:30
PROVIDERS: ATTEND Nurse Practitioner Family
DX: G35 Multiple sclerosis (principal)
CPT/HCPCS: 96365; J2930; J7050

== ENCOUNTER → 2018-01-07 | Outpatient (REF) | payer MEDICAID ==
[~2018-01-07] MED LIST changes: -DEXTROSE 5%(*) 100 ML BAG 100 ML IVPB PRN; -LIDOCAINE/SOD BICARB 8.4% SYR ID PRN
== END ==
LOC: ZZSENDIN 16:14
PROVIDERS: ATTEND Urology
DX: N39.0 Urinary tract infection, site not specified (principal); R31.0 Gross hematuria; B96.20 Unspecified Escherichia coli [E. coli] as the cause of diseases classified elsewhere
CPT/HCPCS: 87077; 87088; 87186

== ENCOUNTER → 2018-03-27 | Outpatient (REF) | payer MEDICAID | LOC: ZZSENDIN 10:00 | PROVIDERS: ATTEND Family Medicine | DX: I78.1 Nevus, non-neoplastic (principal) | CPT/HCPCS: 88305 ==

== ENCOUNTER → 2018-05-06 | Outpatient (CLI) | payer MEDICAID ==
[~2018-05-06] MED LIST changes: +GADOBENATE 529MG/1ML 15ML VIAL IVP ONE
--- NOTE | 2018-05-06 10:28 | RADIOLOGY IMAGING REPORT ---
FACILITY: [facility] [place] PATIENT NAME: Kaley Galindo : 1985 MR: [id number] V: [id number] EXAM DATE: ORDERING PHYSICIAN: MEKA MCMAHAN TECHNOLOGIST: Location: [facility] [place] Patient: Kaley Galindo : 1985 Visit/Account:[id number] Date of Sevice: 05/06/2018 MR BRAIN/BRAIN STEM W/ & W/O CON Comparisons: Brain MRI dated April 19, 2017 Additional pertinent history: Multiple sclerosis TECHNIQUE: Multiplanar, multisequence brain MRI was performed with and without gadolinium contrast. CONTRAST: 14 ml of MultiHance. FINDINGS: Sagittal midline structures and craniocervical junction: Negative. Midline shift: None. Ventricles: Negative. Brain parenchyma: Diffusion weighted imaging: Negative. Gradient sequence: Negative. T2 weighted FLAIR images: Continued multiple regions of increased T2 signal within the periventricu lar and subcortical white matter with several lesions perpendicular to the lateral ventricles compati ble with patient's history of multiple sclerosis. Also continued findings of a region of increased T 2 signal in the left middle cerebellar peduncle. No new foci when compared to previous exam. Extra-axial spaces: Negative. Dural venous sinuses and major arterial flow voids: Negative. Intracranial enhancement: Negative.. Mastoid air cells and paranasal sinuses: Mild mucosal thickening involving the ethmoid air cells and sphenoid sinuses. Surrounding soft tissues and orbits: Negative. Impression: 1. Stable changes of multiple sclerosis. 2. No new lesions or pathologic enhancement when compared to previous exam. 3. No other new findings from previous exam. Report Dictated By: Dung Hatch MD at 05/06/2018 10:14 AM Report E-Signed By: Dung Hatch MD at 05/06/2018 10:23 AM WSN:[id number]
== END ==
LOC: MRI 01:24
PROVIDERS: ATTEND Psychiatry & Neurology Neurology
DX: G35 Multiple sclerosis (principal)
CPT/HCPCS: 70553; A9577

== ENCOUNTER 2018-05-09 07:16 | Outpatient (RCR) | payer MEDICAID ==
[~2018-05-09 07:16] MED LIST changes: +DEXTROSE 5%(*) 100 ML BAG 100 ML IVPB PRN; -GADOBENATE 529MG/1ML 15ML VIAL IVP ONE; +LIDOCAINE/SOD BICARB 8.4% SYR ID PRN; +NS(*) 0.9% 100 ML BAG 100 ML IVPB PRN
[2018-05-09 08:15] VITALS: BP 116/78
[2018-05-09 08:41] LABS: PLATELET COUNT, AUTOMATED 238 K/uL (150-450)
[2018-05-09] MEDS ORDERED: ACETAMINOPHEN 325 MG TAB PO PRN (08:45)
[2018-05-09] MEDS ORDERED: OCRELIZUMAB 300 MG/10 ML SDV 600 MG in NS(*) 0.9% 500 ML BAG 500 ML IVPB ONE (08:45)
[2018-05-09] MEDS ORDERED: diphenhydrAMINE 25 MG CAP PO PRN (08:50)
[2018-05-09] MEDS ORDERED: methylPREDNIS SUCC 125 MG/2ML IVP PRN (08:50)
[2018-05-09 14:06] VITALS: BP 122/72
== END 2018-05-12 15:43 | disposition home or self-care (01) ==
LOC: SPU 07:16
PROVIDERS: ATTEND Emergency Medicine
DX: G35 Multiple sclerosis (principal)
CPT/HCPCS: 85025; J2350; J2930; J7040; J7050; Q0163; 96375; 96413; 96415